=== PATIENT | female | born 2000 | race Caucasian/White ===

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

== ENCOUNTER 2019-03-06 07:01 | Inpatient (IN) | payer OTHER | END 2019-03-06 21:44 | disposition left against medical advice (07) | LOC: F2N 10:11 ==